=== PATIENT | male | born 1975 | race Caucasian/White ===

== ENCOUNTER 2021-06-06 17:41 | Outpatient (CLI) | payer OTHER, SELFPAY ==
--- NOTE | ~2021-06-06 | XR_ITS ---
EXAMINATION: XR knee LT 3V, XR knee RT 3V DATE: 06/06/2021 18:11 INDICATION: Chronic bilateral knee pain TECHNIQUE: 1. AP, lateral and sunrise views of the left knee were obtained. 2. AP, lateral and sunrise views of the right knee were obtained. COMPARISON: None. FINDINGS: Alignment is normal at both knees. No fractures. Relatively symmetric pattern of tricompartmental ost eoarthritis at both knees with relatively preserved joint spaces but with small marginal osteophytes at the medial and lateral compartments of both knees, large marginal osteophytes at the left patellof emoral compartment and moderate size marginal osteophytes at the right patellofemoral compartment. No joint effusion at either knee. Additional hypertrophic osteophytes at the left proximal tibiofibular articulation. There is a mildly expansile cortically centered lucent lesion along the posterior medi al cortex of the proximal left fibular diaphysis with narrow zone of transition, no thinning of the c ortex and without other aggressive features favoring a benign etiology. IMPRESSION: 1. 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 2. Likely benign nonaggressive appearing cortically centered small lytic lesion in the proximal left fibular diaphysis of indeterminate etiology. Reviewed, dictated and finalized at location A. IMPRESSION: 1. Mild patellofemoral predominant tricompartmental osteoarthritis of both knee s with hypertrophic osteophytes disproportionate to the absence of significant joint space narrowing. 2. Likely benign nonaggressive appearing cortically centered small lytic lesion in the proximal left fibular diaphysis of indeterminate etiology.
== END 2021-06-06 17:42 | disposition home or self-care (01) ==
PROVIDERS: PCP Physician Assistant; Visit Provider Physician Assistant
DX: M17.0 Bilateral primary osteoarthritis of knee (principal)
CPT/HCPCS: 73562

== ENCOUNTER 2022-01-17 07:34 | Outpatient (CLI) | payer OTHER, SELFPAY ==
--- NOTE | ~2022-01-17 | NM_ITS ---
EXAMINATION: NM debbie stress w perfusion DATE: 01/17/2022 10:34 INDICATION: Dyspnea on exertion. TECHNIQUE: Rest images were obtained following intravenous administration of 10.1 mCi Tc99m tetrofosm in (Myoview). The patient was infused intravenously with Lexiscan (regadenoson). Then, 32.5 mCi Tc99m tetrofosmin (Myoview) was administered intravenously, and stress images were obtained. Data was arron nstructed into short axis and horizontal and vertical long axis SPECT images. Gated SPECT images were also obtained. COMPARISON: None. FINDINGS: There is no definite reversible or fixed perfusion abnormality to suggest ischemia or infar ction. There is no segmental wall motion abnormality. Left ventricular ejection fraction measures 6 2%. IMPRESSION: 1. No definite ischemia or infarct. 2. Normal left ventricular ejection fraction measuring 62%. Reviewed, dictated and finalized at location A. US AIDE
--- NOTE | 2022-01-17 07:45 | EST_ITS ---
Patient Info Name: Hero Mathew Age: 46 years : 1975 Gender: Male Ht: 70 in Wt: 250 lbs BSA: 2.41 m2 HR: 76 bpm BP: 139 / 87 mmHg Heart Rhythm: Sinus Rhythm Exam Date: 01/17/2022 9:34 AM Exam Location: [facility] Stress Patient Status: Outpatient Admit Date: 01/17/2022 Staff Ordering Physician: Mika Samuel PA-C Attending Provider: Mika Samuel PA-C Exercise Technologist: Hailey Tamayo CT Exercise Physician: Dino Arnold DO Exam Type: CA stress debbie w NM Study Info Indications R06.02 - Shortness of breath A regadenoson stress test was performed. Summary 1. 1. Negative lexiscan stress test for ischemic ST changes by ECG criteria. 2. 2. Stable hemodynamics throughout the test. 3. 3. Nuclear scan to follow and will be reported separately. Please correlate with it. 4. 4. Patient informed of the above results. Protocol: Lexiscan Stress ECG Details Stage: REST Duration (min): 0 min : 53 sec HR (bpm): 76 SBP (mmHg): 148 DBP (mmHg): 95 Stage: STAGE 1 Duration (min): 0 min : 3 sec HR (bpm): 79 SBP (mmHg): 148 DBP (mmHg): 95 Stage: RECOVERY Duration (min): 0 min : 4 sec HR (bpm): 79 SBP (mmHg): 148 DBP (mmHg): 95 Rest HR: 76 bpm Rest Sys BP: 148 mmHg Max Pred HR: 174 bpm Target HR: 148 bpm Termination Reason: Completed protocol Cardiac Symptoms: Shortness of breath Total Time: 0 min : 3 sec Rest Choudhury BP: 95 mmHg Total Dose: 0.4 mg Resting ECG Sinus rhythm. Stress ECG Borderline ST abnormality in ant/inf leads. Arrhythmias None. Report Signatures
== END 2022-01-17 07:35 | disposition home or self-care (01) ==
LOC: ANHCARD 07:35
PROVIDERS: PCP Internal Medicine; Visit Provider Physician Assistant
DX: R06.02 Shortness of breath (principal); R07.9 Chest pain, unspecified
CPT/HCPCS: 78452; 93017; A9502; J2785

== ENCOUNTER 2023-11-17 16:29 | Outpatient (CLI) | payer OTHER, SELFPAY ==
--- NOTE | ~2023-11-17 | XR_ITS ---
EXAMINATION: XR shoulder LT min 2V DATE: 11/17/2023 16:57 INDICATION: Left shoulder pain. TECHNIQUE: 5 views of left shoulder were obtained. COMPARISON: None. FINDINGS: Bone alignment is normal. No fracture. Glenohumeral joint is normal. There is mild acromioc lavicular joint osteoarthritis. IMPRESSION: 1. Mild left acromioclavicular joint osteoarthritis. Reviewed, dictated and finalized at location E. L SHAPER HAND
== END 2023-11-17 16:30 | disposition home or self-care (01) ==
LOC: ANHIMG 16:32
PROVIDERS: PCP Physician Assistant; Visit Provider Physician Assistant
DX: M19.012 Primary osteoarthritis, left shoulder (principal)
CPT/HCPCS: 73030

== ENCOUNTER → 2023-12-29 07:45 | Outpatient (CLI) | payer OTHER, SELFPAY ==
--- NOTE | ~2023-12-29 | US_ITS ---
EXAMINATION: US abdomen limited DATE: 12/29/2023 08:07 INDICATION: Abdominal pain. TECHNIQUE: Multiple grayscale and Doppler ultrasound images of the abdomen were obtained. COMPARISON: CT abdomen 09/30/2008 FINDINGS: The visualized portions of the head, body, and tail of the pancreas are normal. There is di ffuse hepatic steatosis. There is normal flow in main portal vein. The gallbladder is normal in size. No gallstones or gallbladder wall thickening. There is no sonographic Young sign. The common duct i s normal and measures 3 mm. Right kidney is normal. The aorta is normal in caliber. IMPRESSION: 1. Diffuse hepatic steatosis. Reviewed, dictated and finalized at location A. AL MANAGEMENT REPRESENTATIVE
== END ==
PROVIDERS: PCP Physician Assistant; Visit Provider Physician Assistant
DX: K76.0 Fatty (change of) liver, not elsewhere classified (principal)
CPT/HCPCS: 76705

== ENCOUNTER 2025-08-07 08:24 | Day surgery (SDC) | payer OTHER, SELFPAY ==
[2025-07-31 12:52] VITALS: BMI 34.1
[2025-08-07 08:41] VITALS: BP 152/99; PULSE 83; RESP 17; TEMP 37.5; O2SAT 98
[2025-08-07] MEDS: LACTATED RINGERS 1,000 ML 150 ML IV CONT (08:43)
--- NOTE | 2025-08-07 08:53 | WPDANESEPPF ---
Anes - Initial Pre Proc Eval Procedure: Operation Date: 08/07/25 10:00 Proposed Procedures p Screening Colonoscopy - Ra Montana DO Date/Time: 08/07/25 08:53 Surgeon: Ra Montana DO Pre Op Diagnosis: Neoplasm Screening Patient Data Age: 49 Gender: M Height: 1.78 m Weight: 106.7 kg Last Vital Signs Temp 99.5 F 08/07/25 08:41 Pulse 83 08/07/25 08:41 Resp 17 08/07/25 08:41 BP 152/99 H 08/07/25 08:41 Pulse Ox 98 08/07/25 08:41 O2 Del Method Room Air 08/07/25 08:41 Allergies Allergy/AdvReac Type Severity Reaction Status Date / Time sulfamethoxazole (From Allergy Intermediate Rash Verified 08/07/25 08:39 Bactrim) trimethoprim (From Bactrim) Allergy Intermediate Rash Verified 08/07/25 08:39 sulfamethizole Allergy Unknown rash Verified 08/07/25 08:39 Home Medications ?Medication ?Instructions ?Recorded ?Confirmed ?Type loratadine 10 mg tablet (Claritin) 10 mg PO DAILY 10/05/19 08/07/25 History fluticasone propionate 50 2 spray intranasal DAILY #16 grams 06/06/21 08/07/25 Rx mcg/actuation nasal spray,suspension (Flonase Allergy Relief) lorazepam 0.5 mg tablet 0.5 mg PO BID PRN anxiety #20 tabs 01/07/22 08/07/25 Rx losartan 50 mg tablet 50 mg PO DAILY #90 tabs 11/07/24 08/07/25 Rx metformin 500 mg tablet,extended See Rx Instructions .Route 12/16/24 08/07/25 Rx release 24 hr .COMPLEX #90 tabs omeprazole magnesium 20 mg 20 mg PO DAILY 12/16/24 08/07/25 History tablet,delayed release (Prilosec OTC) atorvastatin 10 mg tablet 10 mg PO DAILY #90 tabs 01/13/25 08/07/25 Rx hydrochlorothiazide 12.5 mg capsule See Rx Instructions .Route 05/01/25 08/07/25 Rx .COMPLEX #90 caps tirzepatide 5 mg/0.5 mL 5 mg (0.5 mL) subcut WEEKLY #2 mL 05/03/25 08/07/25 Rx subcutaneous pen injector (Mounjaro) Laboratory Tests 08/07/25 08:48 POC Capillary Glucose 103 mg/dl (65-105) Patient hx anesthesia problems: none Family hx anesthesia problems: none Results Review: All pre-operative results and documents have been reviewed as part of the pre-operative evaluation. [facility] Past Medical History Medical History Diabetes mellitus Rhinitis, allergic Hypertension Ear congestion Screening for prostate cancer Routine medical exam Diarrhea Surgical History Surgical History History of appendectomy (~2008) Family History Family History Sibling Diabetes mellitus Hypertension Family history of psoriasis Depression Father Hypertension Mother Hypertension Grandparent Cancer Social History Social History (Updated 12/16/24 @ 08:37 by CIRO Crawford) Smoking status: Former smoker Tobacco type: cigarettes Second hand tobacco smoke exposure: No Alcohol intake: current Drinks per week: 8 Substance use: current Substance use type: marijuana Other substance usage details: 2x week Do You Feel Safe in your Home?: Yes Lack of Transportation: No Lack of Food: Never True Current Housing: I Have Housing Concerned About Future Housing: No Difficulty Paying Gas/Electric Bills: No Difficulty Paying for Meds: No Currently Unemployed: No Education: Bachelor's Degree Difficulty w/ Childcare or Family Care: No Living arrangements: with family Additional living arrangements comments: [place] Occupation/Education: occupation 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 Informed Consent: The patient's anesthetic plan and its attendant risks and benefits were discussed with the patient/family/POA. Questions were solicited and answers provided to the satisfaction of the patient/family/POA.
--- OUTSIDE RECORDS SUMMARY | 2025-08-07 08:57 | XMS_ITS | Clinical Summary ---
Author Organization [facility] [employer] Address [address] [place] [address] Care Team Providers Care Technical Sales Consultant Name Role Phone Unavailable Primary Care Provider Unavailabl e Source Comments [facility],non-owned Affiliates and Associated Physician Practices is amultiple site organization consisting of ambulatory clinics and hospital sitesin [place], [place], [place] and [place]. This disclosure is being madepursuant to the Care Everywhere program and may not contain all information available regarding this patient. Last updated 18.[facility] [employer] Allergies Active Allergy Reactions Criticality Noted Date Comments Sulfamethoxazole W-Trimethoprim Anaphylaxis High Medications * Be aware that medications may not be up to date on this document. Alwaysverify current medications with the patient. losartan (COZAAR) 50 MG tablet Take 50 mg by mouth once daily Active hydroCHLOROthiaz ita (HYDRODIURIL) 12.5 MG TABS Take by mouth once daily Active metFORMIN (GLUCOPHAGE) 500 MG tablet Take 500 mg by mouth 2 times daily with morning and evening meal Active omeprazole (PRILOSEC) 20 MG capsule Take 20 mg by mouth daily before breakfast Active fexofenadine (STEPHANY) 180 MG tablet Take 180 mg by mouth once daily Active predniSONE (DELTASONE) 20 MG tabletIndication s:Acute sinusitis, recurrence not specified, unspecified location Take 1 tablet by mouth 2 times daily 14 tablet 9 Active Active Problems No known active problems Family History Medical History Relation Name Comments Hypertension Father Diabetes - Type 2 Mother Hypertension Mother Asthma Neg Hx Autoimmune Disease Neg Hx Bipolar Disorder Neg Hx Cancer - Breast Neg Hx Cancer - Colon Neg Hx Cancer - Other Neg Hx Cancer - Ovarian Neg Hx Cancer - Pancreatic Neg Hx Cancer - Prostate Neg Hx Depression Neg Hx Eczema Neg Hx Migraine Neg Hx Osteoporosis Neg Hx Seizures Neg Hx Sudd. <30 Neg Hx Thyroid Disease Neg Hx Ulcerative Colitis Neg Hx Relation Name Status Comments Father Alive Mother Alive Social History Tobacco Use Types Packs/Day Years Used Date Smoking Tobacco: Former Smokeless Tobacco: Never Tobacco Cessation:Counseling Given: No Alcohol Use Standard Drinks/Week Comments No 0 (1 standard drink = 0.6 oz pur e alcohol) Sex and Gender Information Value Date Recorded Sex Assigned at Not on file Legal Sex Male 7:43 AM APPEALS EXAMINER Gender Identity Not on file Sexual Orientation Not on file Last Filed Vital Signs Vital Sign Reading Time Taken Comments Blood Pressure 122/70 12/16/2018 10:42 AM APPEALS EXAMINER Pulse 78 12/16/2018 10:42 AM APPEALS EXAMINER Temperature 36.8 C (98.2 F) 12/16/2018 10:42 AM APPEALS EXAMINER Respiratory Rate 20 12/16/2018 10:42 AM APPEALS EXAMINER Oxygen Saturation 98% 12/16/2018 10:42 AM APPEALS EXAMINER Inhaled Oxygen Concentration - - Weight 120.2 kg (265 lb) 12/16/2018 10:42 AM APPEALS EXAMINER Height 180.3 cm (5' 11) 12/16/2018 10:42 AM APPEALS EXAMINER Body Mass Index 36.96 12/16/2018 10:42 AM APPEALS EXAMINER Plan of Treatment Health Maintenance Due Date Last Done Comments COLOGUARD (AGES 45-75) - COL ON CA SCREENING 1975 COLON MONITORING 1975 COLONOSCOPY - COLON CA SCREENING 1975 CT COLONOGRAPHY - COLON CA SCREENING 1975 Colorectal Cancer Screening 1975 FIT - COLON CA SCREENING 1975 FLEX SIG - COLON CA SCREENING 1975 LIPID TESTING 1975 HIV SCREENING 1990 HEPATITIS C SCREENING 11/07/1993 DTAP/TDAP/TD VACCINES (1 - Tdap) 1994 HEPATITIS B VACCINE (1 of 3 - 19+ 3-dose series) 1994 SCREENING FOR DIABETES 12/16/2018 DEPRESSION SCREENING 11/23/2024 COVID-19 VACCINE (1 - 2023-2 5 season) 2025 INFLUENZA VACCINE (#1) 2025 ZOSTER VACCINE (1 of 2) 2025 HIB VACCINE Aged Out No longer eligi ble based on patient's age to complete this topic HPV VACCINE Aged Out No longer eligi ble based on patient's age to complete this topic MENINGOCOCCAL (Group B) VACC INE SHARED DECISION-MAKING Aged Out No longer eligibl e based on patient's age to complete this topic MENINGOCOCCAL GROUPS A/C/Y/W VACCINE Aged Out No longer eligible b ased on patient's age to complete this topic
--- OUTSIDE RECORDS SUMMARY | 2025-08-07 08:57 | XMS_ITS | Clinical Summary ---
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 Gender Identity Not on file Sexual Orientation Not on file Last Filed Vital Signs Vital Sign Reading Time Taken Comments Blood Pressure - - Pulse - - Temperature - - Respiratory Rate - - Oxygen Saturation - - Inhaled Oxygen Concentration - - Weight 108.9 kg (240 lb) 03/18/2024 8:14 AM CDT Height 177.8 cm (5' 10) 03/18/2024 8:14 AM CDT Body Mass Index 34.44 03/18/2024 8:14 AM CDT Plan of Treatment Health Maintenance Due Date Last Done Comments Colon Cancer Screening-Colonoscopy 1975 Depression Screening 1975 Hepatitis C Screening 1975 Hepatitis B Screening 1993 Regular Well Visit/Exam 18-64 1993 Covid-19 Vaccine (2024-2 6 season) 2025 11/04/2021, 02/14/2021, 01/24/2021 Influenza Vaccine (#1) 2025 , 10/12/2017 DTaP/Tdap/Td Vaccine (3 - Td or Tdap) 10/12/2027 10/12/2017, 09/23/2017, 11/27/2003 Pneumococcal vaccine <65 Aged Out No longer eligible based on patient's age to complete this topic Insurance [facility] Address: [place] [address] [facility] Address: [place] [address] Care Teams Refrigerator Room Clerk Relationship Specialty Start Date End Date Mika Samuel PA [address] [facility] [address] [place], [place] [id number] PCP - General Physician Case Liner 04/29/24
--- NOTE | 2025-08-07 09:45 | P.HP_ITS ---
H&P: HPI History of Present Illness Date/Time: 08/07/25 09:45 Chief Complaint: screening for colorectal cancer Narrative: this is a 49-year-old man who presents for his 1st colonoscopy. He denies history of hematochezia is a family history of colon cancer in a grandfather but no first-degree relatives. Review of Systems Review of Systems: All systems reviewed & are unremarkable except as noted in HPI and below Constitutional: Constitutional: Denies chills, Denies fever(s), Denies headache(s) and Denies weight loss Eyes: Eyes: Denies change in vision ENT: Denies dizziness, Denies headache(s), Denies neck mass and Denies throat swelling Cardiovascular: Cardiovascular: Denies chest pain, Denies lightheadedness and Denies dyspnea Respiratory: Respiratory: Denies cough, Denies dyspnea and Denies wheezing Gastrointestinal: Gastrointestinal: Denies abdominal pain, Denies change in bowel habits, Denies nausea and Denies vomiting Genitourinary: Genitourinary: Denies hematuria and Denies dysuria Musculoskeletal: Musculoskeletal: Reports as per HPI Integumentary/Breasts: Skin/Breast: Reports as per HPI Neurologic: Denies dizziness and Denies headache(s) Allergic/Immunologic: Allergic/Immunologic: Denies throat swelling and Denies wheezing [facility] Past Medical History Medical History Diabetes mellitus Rhinitis, allergic Hypertension Ear congestion Screening for prostate cancer Routine medical exam Diarrhea Surgical History Surgical History History of appendectomy (~2008) Family History Family History Sibling Diabetes mellitus Hypertension Family history of psoriasis Depression Father Hypertension Mother Hypertension Grandparent Cancer Social History Social History (Updated 12/16/24 @ 08:37 by CIRO Crawford) Smoking status: Former smoker Tobacco type: cigarettes Second hand tobacco smoke exposure: No Alcohol intake: current Drinks per week: 8 Substance use: current Substance use type: marijuana Other substance usage details: 2x week Do You Feel Safe in your Home?: Yes Lack of Transportation: No Lack of Food: Never True Current Housing: I Have Housing Concerned About Future Housing: No Difficulty Paying Gas/Electric Bills: No Difficulty Paying for Meds: No Currently Unemployed: No Education: Bachelor's Degree Difficulty w/ Childcare or Family Care: No Living arrangements: with family Additional living arrangements comments: [place] Occupation/Education: occupation 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 Gender identity (if verbalized by the patient): Male Spiritual care concerns: No Meds Home Medications and Allergies Home Medications ?Medication ?Instructions ?Recorded ?Confirmed ?Type loratadine 10 mg tablet (Claritin) 10 mg PO DAILY 09/2308/07/25 History fluticasone propionate 50 2 spray intranasal DAILY #16 grams 06/06/21 08/07/25 Rx mcg/actuation nasal spray,suspension (Flonase Allergy Relief) lorazepam 0.5 mg tablet 0.5 mg PO BID PRN anxiety #2 0 tabs 01/07/22 08/07/25 Rx losartan 50 mg tablet 50 mg PO DAILY #90 tabs 10/2308/07/25 Rx metformin 500 mg tablet,extended See Rx Instructions . Route 12/16/24 08/07/25 Rx release 24 hr .COMPLEX #90 tabs omeprazole magnesium 20 mg 20 mg PO DAILY 12/16/24 History tablet,delayed release (Prilosec OTC) atorvastatin 10 mg tablet 10 mg PO DAILY #90 tabs 02/12/1708/07/25 Rx hydrochlorothiazide 12.5 mg capsule See Rx Instruction s .Route 05/01/25 08/07/25 Rx .COMPLEX #90 caps tirzepatide 5 mg/0.5 mL 5 mg (0.5 mL) subcut WEEKLY #2 mL 05/03/25 08/07/25 Rx subcutaneous pen injector (Mounjaro) Allergies Allergy/AdvReac Type Severity Reaction Status Date / Time sulfamethoxazole (From Allergy Intermediate Rash Verified 08/07/25 08:39 Bactrim) trimethoprim (From Bactrim) Allergy Intermediate Rash Verified 08/07/25 08:39 sulfamethizole Allergy Unknown rash Verified 08/07/25 08:39 Vital Signs Vital Signs - 24 hr 08/07/25 08:41 Temperature 99.5 F Pulse Rate 83 Respiratory Rate 17 Blood Pressure 152/99 H Pulse Oximetry 98 Oxygen Delivery Room Air Exam Const: General: no acute distress and alert Orientation/consciousness: patient oriented x3 HENMT: Head: normocephalic and atraumatic Ears: hearing grossly normal bilaterally Face/Nose/Sinus: Normal nares present Mouth: Yes Normal oral and palatal mucosa present Eyes: Periorbital: periorbital findings normal Sclera: sclerae normal EOM: EOMs intact bilaterally Neck: Neck: normal visual inspection, no lymphadenopathy and trachea midline Chest: Chest palpation & inspection: normal inspection of the chest Resp: Effort & Inspection: normal respiratory effort Auscultation: clear to auscultation bilaterally Cardio: Jugular venous distension: no JVD Rate: regular rate Rhythm: regular rhythm Heart sounds: S1 normal heart sound present and S2 normal heart sound present Peripheral pulses: Peripheral pulses 2+ throughout GI: Inspection: normal to inspection GI Palp: Yes Soft to palpation, No Tenderness to palpation present (GI), No Guarding due to palpation present (GI) and No Rebound tenderness present Percussion: Yes normal to percussion Auscultation: normal bowel sounds : General: Yes no CVA tenderness Back/Spine/Pelvis: Back: no CVA tenderness Neuro: General: patient oriented x3, no focal motor deficits and CN's II-XI intact bilaterally Cognition (Neuro): normal cognition Speech: normal speech Motor exam (neuro): 5/5 motor strength present throughout Extrem: General: capillary refill normal and no clubbing, cyanosis or edema Assessment and Plan Assessment and plan (1) Screening for colon cancer: Code(s): Z12.11 - Encounter for screening for malignant neoplasm of colon Status: Acute Assessment and Plan: I have recommended colonoscopy. I have discussed the procedure, risks, benefits, and alternatives. Questions were answered. Patient is agreeable to proceed.
--- NOTE | 2025-08-07 09:59 | WPDANESPN ---
Anes - Prog Note Post-Op Date/Time: 08/07/25 09:59 Vital Signs: Last Vital Signs Temp 99.5 F 08/07/25 08:41 Pulse 83 08/07/25 08:41 Resp 17 08/07/25 08:41 BP 152/99 H 08/07/25 08:41 Pulse Ox 98 08/07/25 08:41 O2 Del Method Room Air 08/07/25 08:41 Pain Score (VAS): no 08/07/25 08:48 POC Capillary Glucose 103 Patient Feedback: Patient satisfied with anesthetic care.
[2025-08-07 10:16] VITALS: BP 128/79; PULSE 80; RESP 17; O2SAT 98
[2025-08-07 10:26] VITALS: BP 133/92; PULSE 72; RESP 18; O2SAT 96
[2025-08-07 10:36] VITALS: BP 133/87; PULSE 70; RESP 18; O2SAT 100
== END 2025-08-07 10:46 | disposition home or self-care (01) ==
PROVIDERS: PCP Nurse Practitioner; Visit Provider Surgery
PROC: 0DJD8ZZ Inspection of Lower Intestinal Tract, Via Natural or Artificial Opening Endoscopic (ICD-10-PCS; CPT 45378; principal; 2025-08-07 10:00)
DX: Z12.11 Encounter for screening for malignant neoplasm of colon (principal); D12.3 Benign neoplasm of transverse colon; K57.30 Diverticulosis of large intestine without perforation or abscess without bleeding
CPT/HCPCS: 45380

== ENCOUNTER 2025-08-07 13:28 | Outpatient (NON) | payer OTHER, SELFPAY ==
--- NOTE | 2025-08-07 | S_PTH ---
PATIENT: Hero Mathew LOC: [facility]#:[id number] AGE/SX: 49/M ROOM: RE08/07/[address]: Ra Montana DO : 1975 BED: DIS: 08/07/2025 SPEC #: [id number] RECD: 08/08/25 13:43 STATUS: EVERT REQ #: [id number] MOHINI: 08/07/25 00:[address]: Ra Montana DEPT: [facility] Surgical RECD BY: Iliana Anthony MLT, ([facility]) ENTERED: 08/08/25 13:44 SP TYPE: Surgical OTHR DR: Augustus Swann APRN Tissues: A - Polyp Procedures: Hematoxylin and Eosin Stain Gross and Microscopic Level 4
--- OUTSIDE RECORDS SUMMARY | 2025-08-08 15:04 | XMS_ITS | Clinical Summary ---
Author Organization [facility] [employer] Address [address] [place] [address] Care Team Providers Care A P Manager Name Role Phone Unavailable Primary Care Provider Unavailabl e Source Comments [facility],non-owned Affiliates and Associated Physician Practices is amultiple site organization consisting of ambulatory clinics and hospital sitesin [place], [place], [place] and [place]. This disclosure is being madepursuant to the Care Everywhere program and may not contain all information available regarding this patient. Last updated 18.[facility] Allergies Active Allergy Reactions Criticality Noted Date [...] on file Legal Sex Male 7:43 AM SERVICE MEMBER Gender Identity Not on file Sexual Orientation Not on file Last Filed Vital Signs Vital Sign Reading Time Taken Comments Blood Pressure 122/70 12/16/2018 10:42 AM SERVICE MEMBER Pulse 78 12/16/2018 10:42 AM SERVICE MEMBER Temperature 36.8 C (98.2 F) 12/16/2018 10:42 AM SERVICE MEMBER Respiratory Rate 20 12/16/2018 10:42 AM SERVICE MEMBER Oxygen Saturation 98% 12/16/2018 10:42 AM SERVICE MEMBER Inhaled Oxygen Concentration - - Weight 120.2 kg (265 lb) 12/16/2018 10:42 AM SERVICE MEMBER Height 180.3 cm (5' 11) 12/16/2018 10:42 AM SERVICE MEMBER Body Mass Index 36.96 12/16/2018 10:42 AM SERVICE MEMBER Plan of Treatment Health Maintenance Due Date [...]
--- OUTSIDE RECORDS SUMMARY | 2025-08-08 15:04 | XMS_ITS | Clinical Summary ---
Author Organization [facility] Address [address] [place] [id number] Care Team Providers Care Oil Pumper Name Role Phone Mika Samuel Primary Care Provider Allergies No known active allergies Social History Tobacco Use Types Packs/Day Years Used Date Smoking Tobacco: Never Assessed Personal Safety Answer Date Recorded Getting School Help Needed Not on file 03/10 Sex and Gender Information Value Date Recorded Sex Assigned at Not on file Legal Sex Male 6:30 PM [employer] Gender Identity Not on file Sexual Orientation [...] patient's age to complete this topic Insurance Care Teams Oil Pumper Relationship Specialty Start Date End Date Mika Samuel PA [address] [facility] [address] [place], [place] [id number] PCP - General Physician Mold Designer 04/29/24
== END 2025-08-07 13:29 | disposition home or self-care (01) ==
LOC: ANHLAB 08-08 13:28
PROVIDERS: PCP Nurse Practitioner; Visit Provider Surgery
DX: Z12.11 Encounter for screening for malignant neoplasm of colon (principal)
CPT/HCPCS: 88305

== ENCOUNTER 2025-10-26 11:41 | Outpatient (CLI) | payer OTHER, SELFPAY ==
--- NOTE | ~2025-10-26 | CT_ITS ---
CT abdomen pelvis wo con INDICATION:lower mid abd pain . COMPARISON: None. TECHNIQUE: Axial 2.5 mm images of the abdomen were obtained without IV or oral contrast. Diagnostic sensitivity is limited due to lack of IV contrast. FINDINGS: The lung bases are clear. The liver parenchyma is unremarkable. No intrahepatic mass or ductal dilatation is evident. The gallbladder is unremarkable. The pancreas and spleen are normal in appearance. The adrenal glands are symmetric in size. The kidneys are unremarkable. No intrarenal stones are noted. There is no hydronephrosis. Evaluation of the stomach and bowel loops are limited due to lack of oral contrast. The appendix is not visualized however no secondary signs of appendicitis are identified. There is colonic diverticulosis without evidence of acute diverticulitis. Moderate fecal load in the rectum suggestive of constip ation. The bladder and rectum are normal. No free intraperitoneal fluid or air is evident. There is no significant retroperitoneal lymphadenopathy. The aorta, visceral vessels and renal arteries demonstrate normal caliber. The lower thoracic and lumbar vertebrae are in normal alignment. IMPRESSION: No acute abnormality is noted in the abdomen and pelvis. There is colonic diverticulosis without evidence of acute diverticulitis. Moderate fecal load in the rectum suggestive of constipation. All CT scans at this facility are performed using low dose modulation techniques as appropriate to perform exam including the following: automated exposure control; use of iterative reconstruction technique; adjustment of the mA and/or kV according to patient size (this includes techniques or standardized protocols for targeted exams where dose is matched to indication/reason for exam). Reviewed, dictated and finalized at location S. MIC CHEMIST IMPRESSION: No acute abnormality is noted in the abdomen and pelvis. There is colonic diverticulosis without evidence of acute diverticulitis. Moderate fecal load in the rectum suggestive of constipation. All CT scans at this facility are performed using low dose modulation techniqu es as appropriate to perform exam including the following: automated exposure c ontrol; use of iterative reconstruction technique; adjustment of the mA and/or kV according to patient size (this includes techniques or standardized protocol s for targeted exams where dose is matched to indication/reason for exam).
== END 2025-10-26 11:42 | disposition home or self-care (01) ==
PROVIDERS: PCP Nurse Practitioner; Visit Provider Nurse Practitioner
DX: R10.32 Left lower quadrant pain (principal)
CPT/HCPCS: 74176